=== PATIENT | female | born 1970 | race Hispanic/Latino ===

== ENCOUNTER 2018-12-30 23:44 | Emergency (ER) | payer OTHER ==
[2018-12-30 23:44] VITALS: BMI 24.3
[2018-12-30 23:48] VITALS: RESP 16; O2SAT 99
[2018-12-31] MEDS ORDERED: Sodium Chloride 0.9% 1,000 ML IV STA (00:10)
--- NOTE | 2018-12-31 00:12 | ED PDOC ---
HPI: Psych/Substance Abuse Time Seen by Provider: 12/30/18 23:53 Chief Complaint (Nursing): Anxiety Chief Complaint (Provider): anxiety History Per: Patient History/Exam Limitations: no limitations Onset/Duration Of Symptoms: Hrs (1) Current Symptoms Are (Timing): Still Present Modifying Factor(s): Marijuana Additional Complaint(s): 48 y/o female history of breast CA (remission x 2 years) brought in by EMS for evaluation of anxiety-like symptoms x 1 hour. Patient states she takes Anastrazole daily and it causes body pain so she was prescribed medical marijuana. PAtient states she first smoked on Saturday, and then bandar noticed the joint to light up a lot easier and felt that she inhaled more smoke than she did on Saturday. Patient states right after taking 2 hits she felt shaky, palpitations, and body twitches. Denies fever, headache, dizziness, extremity numbness/weakness, chest pain, shortness of breath, abdominal pain. Past Medical History Reviewed: Historical Data, Nursing Documentation, Vital Signs Vital Signs: Last Vital Signs Temp 97.7 F 12/30/18 23:46 Pulse 128 H 12/30/18 23:46 Resp 16 12/30/18 23:46 BP 165/101 H 12/30/18 23:46 Pulse Ox 99 12/30/18 23:46 - Medical History PMH: Malignancy - Surgical History Other surgeries: lumpectomy - Family History Family History: States: No Known Family Hx - Living Arrangements Living Arrangements: Alone - Social History Drugs: Cannabis (medically prescribed) - Home Medications Home Medications: Ambulatory Orders Medication Instructions Recorded No Known Home Med 10/17/15 - Allergies Allergies/Adverse Reactions: Allergies Allergy/AdvReac Type Severity Reaction Status Date / Time No Known Allergies Allergy Verified 10/17/15 11:16 Review of Systems ROS Statement: Except As Marked, All Systems Reviewed And Found Negative Cardiovascular: Positive for: Palpitations Physical Exam - Reviewed Nursing Documentation Reviewed: Yes Vital Signs Reviewed: Yes - Physical Exam Appears: Positive for: Well, Non-toxic, Uncomfortable (anxious) Skin: Positive for: Normal Color Eye Exam: Positive for: Conjunctival injection (bilaterally) ENT: Positive for: Normal ENT Inspection Cardiovascular/Chest: Positive for: Regular Rate, Rhythm Respiratory: Positive for: Normal Breath Sounds Gastrointestinal/Abdominal: Positive for: Normal Exam Back: Positive for: Normal Inspection Extremity: Positive for: Normal ROM Neurologic/Psych: Positive for: Alert, Oriented (x3) - ECG ECG: Positive for: Viewed By Me (reviewed by ED attending) ECG Rhythm: Positive for: Sinus Tachycardia (103bpm) O2 Sat by Pulse Oximetry: 99 - Progress ED Course And Treament: -ekg -cafeter[facility] monitor -IV NS bolus -urine drug screen 2:40 Patient states she is feeling better. Vitals stable on monitor Patient educated on findings, discharged with instructions to follow up PMD within 2-3 days Advised to avoid cannabis use until follow up with doctor Return precautions given Disposition - Clinical Impression Clinical Impression: Adverse effect of cannabis - Patient ED Disposition Is Patient to be Admitted: No Counseled Patient/Family Regarding: Studies Performed, Diagnosis, Need For Followup - Disposition Disposition: Routine/Home Disposition Time: 02:51 Condition: IMPROVED Instructions: Medical Marijuana, Marijuana Use and Addiction
[2018-12-31 02:17] LABS: BARBITURATES, UR NEGATIVE (NEGATIVE); BENZODIAZEPINES, UR NEGATIVE (NEGATIVE); OPIATES, UR NEGATIVE (NEGATIVE); PHENCYCLIDINE, UR NEGATIVE (NEGATIVE)
[2018-12-31 02:42] VITALS: BP 121/78; PULSE 88; TEMP 98.2
--- NOTE | 2018-12-31 09:59 | CARD ---
APPROVED REPORT Date of service: 12/31/2018 EKG Measurement Heart [id number] <Conclusion> Sinus tachycardia Nonspecific ST abnormality Abnormal ECG
== END 2018-12-31 03:10 | disposition home or self-care (01) ==
LOC: H.ER 23:44
DX: T40.7X5A Adverse effect of cannabis (derivatives), initial encounter (principal); F41.9 Anxiety disorder, unspecified; Z85.3 Personal history of malignant neoplasm of breast
CPT/HCPCS: 80324; 80345; 80346; 80349; 80353; 80358; 80361; 83992; 93005; 99283; J7030